=== PATIENT | female | born 2000 | race Caucasian/White ===

== ENCOUNTER 2022-06-10 20:18 | Emergency (ER) | payer MEDICAID ==
[~2022-06-10] VITALS: Ht 154.9 cm; Wt 59.9 kg
[2022-06-10 21:18] VITALS: BP_SYST 122
--- NOTE | 2022-06-10 21:23 | NUR ---
Patient triaged and placed in waiting room. VSS and patient appears in no acute distress at this time. Accompanied by self , awaiting available bed, and MD notified of need for MSE.
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
--- NOTE | 2022-06-11 | NUR ---
Patient left without being seen.
== END 2022-06-11 | disposition left against medical advice (07) ==
LOC: SED 20:18
DX: M25.571 Pain in right ankle and joints of right foot (principal); M25.572 Pain in left ankle and joints of left foot; Z53.21 Procedure and treatment not carried out due to patient leaving prior to being seen by health care provider